=== PATIENT | female | born 2000 | race Hispanic/Latino ===

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

== ENCOUNTER 2022-10-24 17:34 | Observation (INO) | payer MEDICAID ==
[~2022-10-24] VITALS: Ht 152.4 cm; Wt 94.3 kg
[2022-10-24 17:37] VITALS: BP 142/108
[2022-10-24 19:05] LABS: APPEARANCE,URINE CLEAR (CLEAR); BILIRUBIN,URINE NEGATIVE (NEGATIVE); COLOR,URINE YELLOW (YELLOW); GLUCOSE, URINE (UA) >=1000 mg/dL (NEGATIVE); KETONES,URINE 5 mg/dL (NEGATIVE); LEUKOCYTE ESTERASE ,URINE NEGATIVE Leu/uL (NEGATIVE); NITRATE,URINE NEGATIVE (NEGATIVE); OCCULT BLOOD,URINE NEGATIVE (NEGATIVE); PROTEIN,URINE NEGATIVE (NEGATIVE); UROBILINOGEN,URINE 0.2 mg/dL (0.2-1.0)
[2022-10-24 19:16] LABS: BACTERIA,URINE Rare /HPF (None Seen); RBC,URINE None Seen /HPF (0-1); SQUAMOUS EPITHELIAL CELL,UR None Seen /HPF (0-2); WBC,URINE 0-1 /HPF (0-1)
== END 2022-10-24 18:43 | disposition home or self-care (01) ==
LOC: EDH 17:34 → LDH 17:35
PROVIDERS: ADMIT Internal Medicine; ATTEND Internal Medicine
DX: O26.892 Other specified pregnancy related conditions, second trimester (principal); R10.9 Unspecified abdominal pain; Z3A.23 23 weeks gestation of pregnancy
CPT/HCPCS: 59025; 81001; G0378; G0379

== ENCOUNTER 2022-12-29 23:28 | Observation (INO) | payer MEDICAID ==
[~2022-12-29] VITALS: Ht 152.4 cm; Wt 108.0 kg
[2022-12-30] VITALS (7 sets, daily range): BP systolic 118–140; BP diastolic 67–91
[2022-12-30 00:09] LABS: APPEARANCE,URINE CLEAR (CLEAR); BILIRUBIN,URINE NEGATIVE (NEGATIVE); COLOR,URINE LIGHT-YELLOW (YELLOW); GLUCOSE, URINE (UA) 70 mg/dL (NEGATIVE); KETONES,URINE NEGATIVE (NEGATIVE); LEUKOCYTE ESTERASE ,URINE 75 Leu/uL (NEGATIVE); NITRATE,URINE NEGATIVE (NEGATIVE); OCCULT BLOOD,URINE NEGATIVE (NEGATIVE); PROTEIN,URINE 100 mg/dL (NEGATIVE)
[2022-12-30 00:12] LABS: BACTERIA,URINE RARE /HPF (None Seen); MUCUS,URINE RARE LPF (None Seen); SQUAMOUS EPITHELIAL CELL,UR MOD /HPF (0-2)
[2022-12-30 00:50] LABS: AMPHET/METH SCREEN,URINE NEGATIVE (NEGATIVE); BARBITURATE SCREEN, URINE NEGATIVE (NEGATIVE); BENZODIAZEPINES SCREEN,URINE NEGATIVE (NEGATIVE); CANNABINOID SCREEN,URINE NEGATIVE (NEGATIVE); COCAINE SCREEN,URINE NEGATIVE (NEGATIVE); OPIATE SCREEN,URINE NEGATIVE (NEGATIVE); PHENCYCLIDINE SCREEN,URINE NEGATIVE (NEGATIVE)
[2022-12-30 01:07] LABS: BASOPHILS % (AUTO) 0.3 % (0.0-5.0); CREATININE 0.7 mg/dL (0.5-1.5); EOSINOPHILS % (AUTO) 2.7 % (0.0-8.0); HEMATOCRIT 35.4 % (36-48); LYMPHOCYTES % (AUTO) 16.2 % (21.0-51.0); MEAN CORPUSCULAR HEMOGLOBIN 27.9 pg (27.0-33.0); MEAN CORPUSCULAR HGB CONC 33.1 g/dL (32.0-36.0); MEAN CORPUSCULAR VOLUME 84.3 fL (80-100); MONOCYTES % (AUTO) 10.2 % (3.0-13.0); NEUTROPHILS % (AUTO) 69.8 % (40.0-77.0); PLATELET COUNT (AUTO) 392 K/uL (130-400); WHITE BLOOD COUNT (AUTO) 10.6 K/uL (4.8-10.8)
[2022-12-30 01:09] LABS: INR 0.93 (0.85-1.15); PROTHROMBIN TIME 9.3 SEC (9.6-11.6)
[2022-12-30 01:11] LABS: ALBUMIN 2.2 g/dL (3.5-5.0); PARTIAL THROMBOPLASTIN TIME 26.9 SEC (26.3-35.5); TOTAL PROTEIN, SERUM 6.6 g/dL (6.0-8.3); URIC ACID 3.7 mg/dL (2.6-7.2)
[2022-12-30] MEDS: LABETALOL HCL 100 MG TABLET PO SCH ×3 (02:39→22:13)
[2022-12-30] MEDS: ACETAMINOPHEN 500 MG TABLET PO PRN ×2 (02:40→08:46)
[2022-12-30 07:16] LABS: BASOPHILS % (AUTO) 0.4 % (0.0-5.0); EOSINOPHILS % (AUTO) 3.5 % (0.0-8.0); HEMATOCRIT 33.5 % (36-48); LYMPHOCYTES % (AUTO) 18.2 % (21.0-51.0); MEAN CORPUSCULAR HEMOGLOBIN 28.2 pg (27.0-33.0); MEAN CORPUSCULAR HGB CONC 32.8 g/dL (32.0-36.0); MEAN CORPUSCULAR VOLUME 85.9 fL (80-100); MONOCYTES % (AUTO) 9.9 % (3.0-13.0); NEUTROPHILS % (AUTO) 67.4 % (40.0-77.0); PLATELET COUNT (AUTO) 332 K/uL (130-400); RED CELL DISTRIBUTION WIDTH 14.1 % (11.0-15.5); WHITE BLOOD COUNT (AUTO) 9.4 K/uL (4.8-10.8)
[2022-12-30 07:30] LABS: INR 0.93 (0.85-1.15); PROTHROMBIN TIME 9.5 SEC (9.6-11.6)
[2022-12-30 07:32] LABS: ALBUMIN 1.9 g/dL (3.5-5.0); CREATININE 0.6 mg/dL (0.5-1.5); PARTIAL THROMBOPLASTIN TIME 26.2 SEC (26.3-35.5); POTASSIUM 4.5 mmol/L (3.5-5.1); TOTAL PROTEIN, SERUM 5.8 g/dL (6.0-8.3); URIC ACID 3.7 mg/dL (2.6-7.2)
[2022-12-30] MEDS: LACTATED RINGERS 1000ML IV SCH ×2 (10:09→18:29)
[2022-12-30] MEDS ORDERED: BUTALB/ACETAMINOPHEN/CAFFEINE 1 EACH TABLET PO PRN (12:30)
[2022-12-30] MEDS ORDERED: PHARMACY COMMUNICATION MISC ONE (22:30)
[2022-12-30] MEDS ORDERED: PANTOPRAZOLE 40 MG TAB DR PO ONE (22:30)
[2022-12-30] MEDS ORDERED: PREN-160 PO (23:42)
[2022-12-31 03:04] LABS: CREATININE,SERUM FOR CRCL 0.6 mg/dL (0.6-1.3)
[2022-12-31 03:05] LABS: COLLECTION PERIOD,URINE 24 HR; TOTAL VOLUME 24HRS,URINE 4500 mL; TPROTEIN TIMED,URINE 28 mg/dL; TPROTEIN U,24HR CALC 1260 mg/24HR (0-165)
[2022-12-31 03:13] VITALS: BP 129/81
[2022-12-31] MEDS: LACTATED RINGERS 1000ML IV SCH (03:24)
[2022-12-31 07:23] VITALS: BP 147/93
[2022-12-31] MEDS ORDERED: CELESTONE SOLUSPAN 6 MG/ML 5ML VIAL IM SCH (09:00)
[2022-12-31] MEDS: LABETALOL HCL 100 MG TABLET PO SCH (09:43)
== END 2022-12-31 10:10 | disposition home or self-care (01) ==
LOC: EDH 23:28 → LDH 23:29 → WSH 12-30 02:15
PROVIDERS: ADMIT Internal Medicine; ATTEND Internal Medicine
DX: O99.891 Other specified diseases and conditions complicating pregnancy (principal); M54.50 Low back pain, unspecified; O26.893 Other specified pregnancy related conditions, third trimester; R10.31 Right lower quadrant pain; R51.9 Headache, unspecified; O36.8130 Decreased fetal movements, third trimester, not applicable or unspecified; O99.323 Drug use complicating pregnancy, third trimester; F12.90 Cannabis use, unspecified, uncomplicated; O10.013 Pre-existing essential hypertension complicating pregnancy, third trimester; Z3A.31 31 weeks gestation of pregnancy
CPT/HCPCS: 80305; 87088; 81001; 36415; 96361 ×3; 59025; 96360; 84550 ×2; 80053 ×2; 85025 ×2; 85384; 85610 ×2; 85730 ×2; 96372; 82575; 84156; G0378 ×36; J0702; J7120

== ENCOUNTER → 2023-01-01 | Outpatient (CLI) | payer MEDICAID ==
[~2023-01-01] VITALS: Ht 152.4 cm; Wt 108.0 kg
[~2023-01-01] MED LIST: CELESTONE SOLUSPAN 6 MG/ML 5ML VIAL IM SCH; PREN-160 PO
== END | disposition home or self-care (01) ==
LOC: UNDOADMOB 09:58 → LDH 09:58 → DAH 10:00 → UNDODISOB 10:30 → EDSTATUS 01-07 10:56
PROVIDERS: ATTEND Internal Medicine
DX: O26.893 Other specified pregnancy related conditions, third trimester (principal); O10.913 Unspecified pre-existing hypertension complicating pregnancy, third trimester; Z3A.33 33 weeks gestation of pregnancy
CPT/HCPCS: 96372; J0702; G0378

== ENCOUNTER 2023-07-18 19:13 | Emergency (ER) | payer MEDICAID ==
[~2023-07-18] VITALS: Ht 152.4 cm; Wt 101.2 kg
[~2023-07-18 19:13] MED LIST changes: +ACET-2079 PO; -CELESTONE SOLUSPAN 6 MG/ML 5ML VIAL IM SCH; +FERS325 PO; +LABE200T7 PO; +[UNRECOGNIZED DRUG - OTHER] PO
[2023-07-18] MEDS ORDERED: MUPI22OI2 TP (21:35)
[2023-07-18 22:11] VITALS: BP 116/75; PULSE 78; RESP 16; O2SAT 97
== END 2023-07-18 22:12 | disposition home or self-care (01) ==
LOC: EDH 19:13
DX: B07.9 Viral wart, unspecified (principal)

== ENCOUNTER 2024-07-05 11:40 | Emergency (ER) | payer MEDICAID ==
[~2024-07-05] VITALS: Ht 152.4 cm; Wt 97.5 kg
[~2024-07-05 11:40] MED LIST changes: +MUPI22OI2 TP
[2024-07-05 12:07] VITALS: BP 156/95; PULSE 101; RESP 16; O2SAT 100
[2024-07-05] MEDS: 0.9%NACL 1000ML 1,000 ML IV ONE (12:18)
[2024-07-05] MEDS: acetaMINOPHEN 500 MG TABLET PO ONE (12:19)
[2024-07-05 12:29] LABS: BASOPHILS # (AUTO) 0.03 K/uL (0.00-0.20); BASOPHILS % (AUTO) 0.4 % (0.0-5.0); EOSINOPHILS # (AUTO) 0.12 K/uL (0.00-0.70); EOSINOPHILS % (AUTO) 1.6 % (0.0-8.0); HEMATOCRIT 39.4 % (36-48); IMMATURE GRANULOCYTE ABSOLUTE 0.02 K/uL (0-1); LYMPHOCYTES # (AUTO) 1.4 K/uL (1.0-4.8); LYMPHOCYTES % (AUTO) 18.7 % (21.0-51.0); MEAN CORPUSCULAR HEMOGLOBIN 29.3 pg (27.0-33.0); MEAN CORPUSCULAR HGB CONC 35.3 g/dL (32.0-36.0); MEAN CORPUSCULAR VOLUME 83.1 fL (79-99); MONOCYTES # (AUTO) 0.6 K/uL (0.1-1.0); MONOCYTES % (AUTO) 7.7 % (3.0-13.0); NEUTROPHILS # (AUTO) 5.4 K/uL (1.8-7.7); NEUTROPHILS % (AUTO) 71.3 % (40.0-77.0); PLATELET COUNT (AUTO) 424 K/uL (130-400); RED BLOOD CELL COUNT(AUTO) 4.74 MIL/uL (4.00-5.50); RED CELL DISTRIBUTION WIDTH 13.4 % (11.0-15.5); WHITE BLOOD COUNT (AUTO) 7.5 K/uL (4.8-10.8)
[2024-07-05 12:38] LABS: CREATININE 0.6 mg/dL (0.5-1.0); POTASSIUM 3.3 mmol/L (3.5-5.1)
[2024-07-05 13:04] LABS: ALBUMIN 3.4 g/dL (3.5-5.0); BILIRUBIN,TOTAL 0.3 mg/dL (0.2-1.0); TOTAL PROTEIN, SERUM 7.6 g/dL (6.0-8.3)
[2024-07-05 14:38] LABS: APPEARANCE,URINE CLOUDY (CLEAR); BILIRUBIN,URINE NEGATIVE (NEGATIVE); COLOR,URINE YELLOW (YELLOW); GLUCOSE, URINE (UA) 500 mg/dL (NEGATIVE); KETONES,URINE 5 mg/dL (NEGATIVE); LEUKOCYTE ESTERASE ,URINE NEGATIVE Leu/uL (NEGATIVE); NITRATE,URINE NEGATIVE (NEGATIVE); OCCULT BLOOD,URINE NEGATIVE (NEGATIVE); PH,URINE 6.5 (5.0-8.0); PROTEIN,URINE 50 mg/dL (NEGATIVE)
[2024-07-05 14:41] LABS: ADD UA MICROSCOPIC YES
[2024-07-05 14:44] LABS: BACTERIA,URINE MOD /HPF (None Seen); MUCUS,URINE FEW LPF (None Seen); OTHER CASTS, URINE 1 /LPF (None Seen); SQUAMOUS EPITHELIAL CELL,UR MANY /HPF (0-2)
[2024-07-05 14:45] LABS: AMPHET/METH SCREEN,URINE NEGATIVE (NEGATIVE); BARBITURATE SCREEN, URINE NEGATIVE (NEGATIVE); BENZODIAZEPINES SCREEN,URINE NEGATIVE (NEGATIVE); CANNABINOID SCREEN,URINE POSITIVE (NEGATIVE); COCAINE SCREEN,URINE NEGATIVE (NEGATIVE); OPIATE SCREEN,URINE NEGATIVE (NEGATIVE); PHENCYCLIDINE SCREEN,URINE NEGATIVE (NEGATIVE)
== END 2024-07-05 15:06 | disposition home or self-care (01) ==
LOC: EDH 11:40
DX: O26.891 Other specified pregnancy related conditions, first trimester (principal); E87.6 Hypokalemia; F12.10 Cannabis abuse, uncomplicated
CPT/HCPCS: 99284; 96360; 76801; 96361; 80053; 80305; 84702; 83690; 85025; 81025; 36415; 81001; J7030

== ENCOUNTER 2024-09-02 02:56 | Emergency (ER) | payer MEDICAID ==
[~2024-09-02] VITALS: Ht 152.4 cm; Wt 97.1 kg
[2024-09-02 03:38] LABS: APPEARANCE,URINE CLEAR (CLEAR); BILIRUBIN,URINE NEGATIVE (NEGATIVE); COLOR,URINE YELLOW (YELLOW); GLUCOSE, URINE (UA) >=1000 mg/dL (NEGATIVE); KETONES,URINE NEGATIVE (NEGATIVE); LEUKOCYTE ESTERASE ,URINE NEGATIVE Leu/uL (NEGATIVE); NITRATE,URINE NEGATIVE (NEGATIVE); OCCULT BLOOD,URINE NEGATIVE (NEGATIVE); PH,URINE 6.5 (5.0-8.0); PROTEIN,URINE 30 mg/dL (NEGATIVE); UROBILINOGEN,URINE 0.2 mg/dL (0.2-1.0)
[2024-09-02 03:47] LABS: ADD UA MICROSCOPIC YES
[2024-09-02 03:48] LABS: BACTERIA,URINE MANY /HPF (None Seen); CALCIUM OXALATE CRYSTALS,UR FEW /LPF (None Seen); SQUAMOUS EPITHELIAL CELL,UR RARE /HPF (0-2)
[2024-09-02 03:58] VITALS: BP 122/81; PULSE 110; RESP 22; TEMP 97.7; O2SAT 99
[2024-09-02 04:03] LABS: BASOPHILS # (AUTO) 0.04 K/uL (0.00-0.20); BASOPHILS % (AUTO) 0.4 % (0.0-5.0); EOSINOPHILS # (AUTO) 0.04 K/uL (0.00-0.70); EOSINOPHILS % (AUTO) 0.4 % (0.0-8.0); HEMATOCRIT 37.6 % (36-48); IMMATURE GRANULOCYTE ABSOLUTE 0.09 K/uL (0-1); LYMPHOCYTES # (AUTO) 1.3 K/uL (1.0-4.8); LYMPHOCYTES % (AUTO) 12.3 % (21.0-51.0); MEAN CORPUSCULAR HEMOGLOBIN 30.5 pg (27.0-33.0); MEAN CORPUSCULAR HGB CONC 35.4 g/dL (32.0-36.0); MEAN CORPUSCULAR VOLUME 86.2 fL (79-99); MONOCYTES # (AUTO) 0.7 K/uL (0.1-1.0); MONOCYTES % (AUTO) 6.7 % (3.0-13.0); NEUTROPHILS # (AUTO) 8.5 K/uL (1.8-7.7); NEUTROPHILS % (AUTO) 79.4 % (40.0-77.0); PLATELET COUNT (AUTO) 356 K/uL (130-400); RED BLOOD CELL COUNT(AUTO) 4.36 MIL/uL (4.00-5.50); RED CELL DISTRIBUTION WIDTH 13.8 % (11.0-15.5); WHITE BLOOD COUNT (AUTO) 10.7 K/uL (4.8-10.8)
[2024-09-02] MEDS: 0.9%NACL 1000ML 1,000 ML IV ONE (04:18)
[2024-09-02 04:34] LABS: CREATININE 0.7 mg/dL (0.5-1.0); POTASSIUM 3.6 mmol/L (3.5-5.1)
== END 2024-09-02 05:21 | disposition home or self-care (01) ==
LOC: EDH 02:56
DX: O99.322 Drug use complicating pregnancy, second trimester (principal); F12.10 Cannabis abuse, uncomplicated; O26.892 Other specified pregnancy related conditions, second trimester; R10.9 Unspecified abdominal pain; E86.0 Dehydration; Z3A.18 18 weeks gestation of pregnancy
CPT/HCPCS: 99284; 76801; 80048; 85025; 87086; 81001; 36415; J7030

== ENCOUNTER 2024-10-04 11:52 | Observation (INO) | payer MEDICAID ==
[~2024-10-04] VITALS: Ht 698.5 cm; Wt 97.5 kg
[2024-10-04 11:53] VITALS: BP 131/91; PULSE 124; RESP 20; TEMP 98.8
[2024-10-04 12:25] LABS: BASOPHILS # (AUTO) 0.03 K/uL (0.00-0.20); BASOPHILS % (AUTO) 0.3 % (0.0-5.0); EOSINOPHILS # (AUTO) 0.23 K/uL (0.00-0.70); EOSINOPHILS % (AUTO) 1.9 % (0.0-8.0); HEMATOCRIT 36.2 % (36-48); IMMATURE GRANULOCYTE ABSOLUTE 0.07 K/uL (0-1); LYMPHOCYTES # (AUTO) 1.1 K/uL (1.0-4.8); LYMPHOCYTES % (AUTO) 9.6 % (21.0-51.0); MEAN CORPUSCULAR HEMOGLOBIN 30.3 pg (27.0-33.0); MEAN CORPUSCULAR HGB CONC 34.8 g/dL (32.0-36.0); MONOCYTES # (AUTO) 1.2 K/uL (0.1-1.0); MONOCYTES % (AUTO) 9.7 % (3.0-13.0); NEUTROPHILS # (AUTO) 9.3 K/uL (1.8-7.7); NEUTROPHILS % (AUTO) 77.9 % (40.0-77.0); PLATELET COUNT (AUTO) 371 K/uL (130-400); RED BLOOD CELL COUNT(AUTO) 4.16 MIL/uL (4.00-5.50); RED CELL DISTRIBUTION WIDTH 13.7 % (11.0-15.5); WHITE BLOOD COUNT (AUTO) 11.9 K/uL (4.8-10.8)
[2024-10-04 12:33] LABS: APPEARANCE,URINE CLOUDY (CLEAR); BILIRUBIN,URINE NEGATIVE (NEGATIVE); COLOR,URINE YELLOW (YELLOW); GLUCOSE, URINE (UA) 500 mg/dL (NEGATIVE); KETONES,URINE NEGATIVE (NEGATIVE); LEUKOCYTE ESTERASE ,URINE NEGATIVE Leu/uL (NEGATIVE); NITRATE,URINE NEGATIVE (NEGATIVE); OCCULT BLOOD,URINE NEGATIVE (NEGATIVE); PROTEIN,URINE 20 mg/dL (NEGATIVE); UROBILINOGEN,URINE 0.2 mg/dL (0.2-1.0)
[2024-10-04 12:36] LABS: ADD UA MICROSCOPIC YES
[2024-10-04 12:38] LABS: MUCUS,URINE RARE LPF (None Seen); RBC,URINE 0-1 /HPF (0-1); SQUAMOUS EPITHELIAL CELL,UR RARE /HPF (0-2)
[2024-10-04 12:47] LABS: ALBUMIN 2.8 g/dL (3.5-5.0); BILIRUBIN,TOTAL 0.3 mg/dL (0.2-1.0); CREATININE 0.7 mg/dL (0.5-1.0); POTASSIUM 3.8 mmol/L (3.5-5.1); TOTAL PROTEIN, SERUM 7.3 g/dL (6.0-8.3)
[2024-10-04] MEDS: LACTATED RINGERS 1000ML 1,000 ML IV SCH (13:23)
[2024-10-04] MEDS: ondanSETRON 4MG INJ IVP ONE (13:27)
== END 2024-10-04 14:27 | disposition home or self-care (01) ==
LOC: EDH 11:52 → LDH 11:53
PROVIDERS: ADMIT Obstetrics & Gynecology; ATTEND Obstetrics & Gynecology
DX: O21.2 Late vomiting of pregnancy (principal); O99.891 Other specified diseases and conditions complicating pregnancy; M54.9 Dorsalgia, unspecified; O26.892 Other specified pregnancy related conditions, second trimester; R10.9 Unspecified abdominal pain; Z3A.23 23 weeks gestation of pregnancy; Z79.899 Other long term (current) drug therapy; Z98.890 Other specified postprocedural states
CPT/HCPCS: 96374; 96361; 80053; 85025; 81001; 36415; G0378 ×2; G0379; J2405; 59025; 96360

== ENCOUNTER 2024-11-27 12:07 | Observation (INO) | payer MEDICAID ==
[~2024-11-27] VITALS: Ht 152.4 cm; Wt 105.4 kg
[2024-11-27 12:09] VITALS: BP 152/87; PULSE 117; RESP 18; TEMP 97.7
== END 2024-11-27 13:30 | disposition home or self-care (01) ==
LOC: EDH 12:07 → LDH 12:08
PROVIDERS: ADMIT Obstetrics & Gynecology; ATTEND Obstetrics & Gynecology
DX: O99.891 Other specified diseases and conditions complicating pregnancy (principal); M54.50 Low back pain, unspecified; O26.893 Other specified pregnancy related conditions, third trimester; R10.30 Lower abdominal pain, unspecified; O13.3 Gestational [pregnancy-induced] hypertension without significant proteinuria, third trimester; Z3A.30 30 weeks gestation of pregnancy; Z79.899 Other long term (current) drug therapy
CPT/HCPCS: G0379; G0378; 59025